=== PATIENT | male | born 1960 | race Caucasian/White ===

== ENCOUNTER 2017-09-16 11:30 | Emergency (ER) | payer OTHER ==
[~2017-09-16] VITALS: Ht 182.9 cm; Wt 95.2 kg
[2017-09-16 11:36] VITALS: Ht 182.9 cm; Wt 95.2 kg
[2017-09-16 12:08] LABS: CALCIUM 8.4 mg/dL (8.5-10.1); CARBON DIOXIDE 25.7 mmol/L (21-32); CHLORIDE SERUM 108 mmol/L (98-107); CREATININE SERUM 1.2 mg/dL (0.7-1.3); GFR1 > 60 mL/min; GLUCOSE SERUM 124 mg/dL (74-106); POTASSIUM SERUM 4.1 mmol/L (3.5-5.1); SODIUM SERUM 141 mmol/L (136-145)
[2017-09-16 12:12] LABS: ALBUMIN 3.5 g/dL (3.4-5.0); ALKALINE PHOSPHATASE 59 U/L (46-116); ALT/SGPT 20 U/L (16-63); AST/SGOT 15 U/L (15-37); BILIRUBIN TOTAL 0.78 mg/dL (0.20-1.00); TOTAL PROTEIN, SERUM 7.1 g/dL (6.4-8.2)
[2017-09-16 12:36] LABS: PLATELET COUNT 184 x10^3mcL (130-400); RED CELL DISTRIBUTION WIDTH 11.8 % (11.5-14.5)
[2017-09-16 12:37] LABS: BASOPHIL % 8.5 % (0-2)
[2017-09-16 15:21] LABS: microscopic required? NO
[2017-09-16 15:29] LABS: UA SPECIFIC GRAVITY 1.015 (1.005-1.035); urine erythrocyte NEGATIVE (NEGATIVE)
[2017-09-16 15:40] LABS: AMPHETAMINE QUAL UR NONE DETECTED (NEG <=1000)
[2017-09-16 15:58] VITALS: BP 146/97
== END 2017-09-16 15:58 | disposition home or self-care (01) ==
LOC: ED 11:30
PROVIDERS: Emergency Medicine
DX: F45.8 Other somatoform disorders (principal); I10 Essential (primary) hypertension; F41.0 Panic disorder [episodic paroxysmal anxiety]
CPT/HCPCS: 36600; 87804; J1885; J2060; Q0092

== ENCOUNTER 2020-10-19 22:02 | Inpatient (IN) | payer BC, SELFPAY ==
[~2020-10-19] VITALS: Ht 182.9 cm; Wt 97.7 kg
[2020-10-19 22:11] VITALS: Ht 182.9 cm; Wt 97.7 kg
[2020-10-19 23:54] LABS: BASOPHIL % 0.2 % (0.2-1.5); PLATELET COUNT 141 x10^3mcL (152-348); RED CELL DISTRIBUTION WIDTH 12.5 % (12.1-16.2)
[2020-10-20 00:03] LABS: CALCIUM 7.6 mg/dL (8.5-10.1); CARBON DIOXIDE 27.3 mmol/L (21-32); CHLORIDE SERUM 102 mmol/L (98-107); CREATININE SERUM 1.1 mg/dL (0.7-1.3); GFR1 > 60 mL/min; GLUCOSE SERUM 161 mg/dL (74-106); POTASSIUM SERUM 3.5 mmol/L (3.5-5.1); SODIUM SERUM 135 mmol/L (136-145)
[2020-10-20 00:08] LABS: ALKALINE PHOSPHATASE 47 U/L (46-116); ALT/SGPT 34 U/L (16-63); AST/SGOT 36 U/L (15-37); BILIRUBIN DIRECT 0.18 mg/dL (0.0-0.2); BILIRUBIN TOTAL 0.7 mg/dL (0.20-1.00); TOTAL PROTEIN, SERUM 6.6 g/dL (6.4-8.2)
[2020-10-20 00:12] LABS: ALBUMIN 2.6 g/dL (3.4-5.0)
[2020-10-20 03:23] VITALS: BP 134/65
[2020-10-20 03:30] VITALS: BP 134/65
[2020-10-20 08:16] VITALS: BP 144/80
[2020-10-20 11:48] VITALS: BP 124/70
[2020-10-20 16:17] VITALS: BP 149/85
[2020-10-20 20:08] VITALS: BP 131/84
[2020-10-21 05:24] VITALS: BP 145/86
[2020-10-21 06:48] LABS: BASOPHIL % 0.1 % (0.2-1.5); PLATELET COUNT 179 x10^3mcL (152-348); RED CELL DISTRIBUTION WIDTH 12.6 % (12.1-16.2)
[2020-10-21 07:19] LABS: CALCIUM 8.4 mg/dL (8.5-10.1); CARBON DIOXIDE 32.5 mmol/L (21-32); CHLORIDE SERUM 107 mmol/L (98-107); CREATININE SERUM 1.1 mg/dL (0.7-1.3); GFR1 > 60 mL/min; GLUCOSE SERUM 130 mg/dL (74-106); POTASSIUM SERUM 4.1 mmol/L (3.5-5.1); SODIUM SERUM 143 mmol/L (136-145)
[2020-10-21 07:32] LABS: BILIRUBIN DIRECT 0.14 mg/dL (0.0-0.2); BILIRUBIN TOTAL 0.5 mg/dL (0.20-1.00); TOTAL PROTEIN, SERUM 6.6 g/dL (6.4-8.2)
[2020-10-21 07:37] LABS: ALBUMIN 2.6 g/dL (3.4-5.0)
[2020-10-21 08:42] VITALS: BP 142/86
[2020-10-21 12:24] VITALS: BP 121/68
[2020-10-21 16:56] VITALS: BP 140/78
[2020-10-21 19:42] VITALS: BP 168/89
[2020-10-22 05:17] VITALS: BP 157/88
[2020-10-22 07:38] LABS: BILIRUBIN DIRECT 0.13 mg/dL (0.0-0.2); BILIRUBIN TOTAL 0.5 mg/dL (0.20-1.00); TOTAL PROTEIN, SERUM 6.7 g/dL (6.4-8.2)
[2020-10-22 08:07] LABS: ALBUMIN 2.6 g/dL (3.4-5.0)
[2020-10-22 08:25] VITALS: BP 167/92
[2020-10-22 12:41] VITALS: BP 166/93
[2020-10-22 17:00] VITALS: BP 157/96
[2020-10-22 20:43] VITALS: BP 168/98
[2020-10-23 05:42] VITALS: BP 147/93
[2020-10-23 06:47] LABS: BASOPHIL % 0.1 % (0.2-1.5); PLATELET COUNT 222 x10^3mcL (152-348); RED CELL DISTRIBUTION WIDTH 12.7 % (12.1-16.2)
[2020-10-23 06:58] LABS: ALKALINE PHOSPHATASE 47 U/L (46-116); ALT/SGPT 46 U/L (16-63); AST/SGOT 22 U/L (15-37); BILIRUBIN DIRECT 0.15 mg/dL (0.0-0.2); BILIRUBIN TOTAL 0.6 mg/dL (0.20-1.00); CALCIUM 8.5 mg/dL (8.5-10.1); CARBON DIOXIDE 33.3 mmol/L (21-32); CHLORIDE SERUM 106 mmol/L (98-107); CREATININE SERUM 0.9 mg/dL (0.7-1.3); GFR1 > 60 mL/min; GLUCOSE SERUM 119 mg/dL (74-106); POTASSIUM SERUM 3.9 mmol/L (3.5-5.1); SODIUM SERUM 143 mmol/L (136-145); TOTAL PROTEIN, SERUM 6.6 g/dL (6.4-8.2)
[2020-10-23 07:03] LABS: ALBUMIN 2.6 g/dL (3.4-5.0)
[2020-10-23 08:17] VITALS: BP 155/85
[2020-10-23 11:49] VITALS: BP 145/90
[2020-10-23 16:35] VITALS: BP 158/97
[2020-10-23 20:25] VITALS: BP 131/95
[2020-10-24 05:32] VITALS: BP 149/88
[2020-10-24 06:49] LABS: PLATELET COUNT 279 x10^3mcL (152-348); RED CELL DISTRIBUTION WIDTH 12.8 % (12.1-16.2)
[2020-10-24 07:05] LABS: ALKALINE PHOSPHATASE 47 U/L (46-116); ALT/SGPT 54 U/L (16-63); AST/SGOT 24 U/L (15-37); BILIRUBIN DIRECT 0.17 mg/dL (0.0-0.2); BILIRUBIN TOTAL 0.82 mg/dL (0.20-1.00); CALCIUM 8.8 mg/dL (8.5-10.1); CARBON DIOXIDE 33.1 mmol/L (21-32); CHLORIDE SERUM 108 mmol/L (98-107); GFR1 > 60 mL/min; GLUCOSE SERUM 119 mg/dL (74-106); POTASSIUM SERUM 3.5 mmol/L (3.5-5.1); SODIUM SERUM 144 mmol/L (136-145); TOTAL PROTEIN, SERUM 6.7 g/dL (6.4-8.2)
[2020-10-24 07:12] LABS: ALBUMIN 2.7 g/dL (3.4-5.0)
[2020-10-24 08:10] LABS: MONOCYTE 8 % (0-7); PLATELET MORPHOLOGY LARGE PLATELET SEEN; SEGMENTED NEUTROPHILS 82 % (37-75); rbc morphology (normal/abnorm) NORMAL (NORMAL)
[2020-10-24 08:22] VITALS: BP 129/83
[2020-10-24 11:56] VITALS: BP 146/93
[2020-10-24 17:14] VITALS: BP 130/82
[2020-10-24 20:12] VITALS: BP 152/95
[2020-10-24 21:11] VITALS: BP 140/90
[2020-10-25 05:28] VITALS: BP 146/88
[2020-10-25 09:39] VITALS: BP 139/95
[2020-10-25 12:15] VITALS: BP 148/96
[2020-10-25 16:17] VITALS: BP 154/94
[2020-10-25 20:57] VITALS: BP 155/93
[2020-10-26 05:17] VITALS: BP 145/87
[2020-10-26 07:50] VITALS: BP 154/96
[2020-10-26 09:53] VITALS: BP 154/96
== END 2020-10-26 10:20 | disposition home or self-care (01) | DRG 177 ==
LOC: ED 22:02 → DU 10-20 01:36
PROVIDERS: Emergency Medicine; Internal Medicine Critical Care Medicine; ADMIT Internal Medicine; ATTEND Internal Medicine
PROC: XW033E5 Introduction of Remdesivir Anti-infective into Peripheral Vein, Percutaneous Approach, New Technology Group 5 (ICD-10-PCS; 2020-10-20)
PROC: XW13325 Transfusion of Convalescent Plasma (Nonautologous) into Peripheral Vein, Percutaneous Approach, New Technology Group 5 (ICD-10-PCS; principal; 2020-10-21)
DX: U07.1 COVID-19 (principal); J96.01 Acute respiratory failure with hypoxia; J12.82 Pneumonia due to coronavirus disease 2019; I10 Essential (primary) hypertension; I25.10 Atherosclerotic heart disease of native coronary artery without angina pectoris; K21.9 Gastro-esophageal reflux disease without esophagitis
CPT/HCPCS: 82962; 83880; G0378; J0456; J0696; J1100; J1650; J2270; J2550; J3535; J7040; J7050; J8540; U0003